=== PATIENT | female | born 1980 | race Caucasian/White ===

== ENCOUNTER → 2019-11-06 | Outpatient (CLI) | payer OTHER | LOC: CAT 08:08 | DX: K85.20 Alcohol induced acute pancreatitis without necrosis or infection (principal); K86.89 Other specified diseases of pancreas ==

== ENCOUNTER → 2020-01-09 | Outpatient (CLI) | payer OTHER | LOC: LAB 11:17 | DX: Z01.818 Encounter for other preprocedural examination (principal); Z11.59 Encounter for screening for other viral diseases ==

== ENCOUNTER → 2021-03-17 | Outpatient (CLI) | payer BC, OTHER ==
[2021-03-17 11:58] LABS: CREATININE 1.3 mg/dL (0.6-1.0)
== END ==
LOC: CAT 10:31
PROVIDERS: ATTEND Psychiatry & Neurology Psychiatry
DX: Z12.31 Encounter for screening mammogram for malignant neoplasm of breast (principal); K76.0 Fatty (change of) liver, not elsewhere classified; K86.2 Cyst of pancreas; N83.209 Unspecified ovarian cyst, unspecified side